=== PATIENT | male | born 2000 | race Caucasian/White ===

== ENCOUNTER 2018-07-14 04:20 | Emergency (ER) | payer OTHER ==
[~2018-07-14] VITALS: Ht 193 cm; Wt 80.3 kg
[2018-07-14 04:25] VITALS: Ht 193 cm; Wt 80.3 kg
[2018-07-14 07:37] VITALS: BP 130/86
== END 2018-07-14 07:37 | disposition home or self-care (01) ==
LOC: ED 04:20
DX: N45.1 Epididymitis (principal)
CPT/HCPCS: J0696; Q0092